=== PATIENT | female | born 1950 | race African-American/Black ===

== ENCOUNTER 2016-10-11 15:41 | Emergency (ER) | payer BC ==
[~2016-10-11] VITALS: Ht 160 cm; Wt 72.6 kg
[2016-10-11 15:50] VITALS: BP 152/85
[2016-10-11 16:10] LABS: BASO # 0.1 x10^3/uL (0.0-0.2); BASO % 1 % (0-3); EOS % 2 % (0-3); HEMATOCRIT 40.1 % (36.0-47.0); HEMOGLOBIN 13.1 g/dL (12.0-15.5); LYMPH # 2.2 x10^3/uL (1.0-4.8); LYMPH % 33 % (24-48); MEAN CORPUSCULAR HEMOGLOBIN 28 pg (25-35); MEAN CORPUSCULAR HGB CONC 33 g/dL (31-37); MEAN CORPUSCULAR VOLUME 85 fL (79-100); MONO % 8 % (0-9); NEUT % 56 % (31-73); PLATELET COUNT 197 x10^3/uL (140-400); RED BLOOD COUNT 4.73 x10^6/uL (3.50-5.40); RED CELL DISTRIBUTION WIDTH 15.7 % (11.5-14.5); WHITE BLOOD COUNT 6.8 x10^3/uL (4.0-11.0)
[2016-10-11 16:11] LABS: BILIRUBIN,URINE NEGATIVE (NEG); GLUCOSE,URINE NEGATIVE (NEG); NITRITE,URINE NEGATIVE (NEG); PH,URINE 5.5; PROTEIN,URINE NEGATIVE (NEG-TRACE)
[2016-10-11 16:22] LABS: BACTERIA,URINE FEW /HPF (0-FEW); RBC,URINE 0 /HPF (0-2); SQUAMOUS EPITHELIAL CELL,UR FEW /LPF
[2016-10-11 16:23] LABS: CALCIUM 9.5 mg/dL (8.5-10.1); CREATININE 1.3 mg/dL (0.6-1.0); GFR 41.2; POTASSIUM 3.9 mmol/L (3.5-5.1)
[2016-10-11 16:28] LABS: DIRECT BILIRUBIN 0.1 mg/dL (0.0-0.2); TOTAL BILIRUBIN 0.3 mg/dL (0.2-1.0); TOTAL PROTEIN 7.9 g/dL (6.4-8.2)
--- NOTE | 2016-10-11 16:30 | EKG ---
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
--- NOTE | 2016-10-11 16:36 | RAD ---
CT of the abdomen and pelvis without contrast, 10/11/2016: History: Upper and mid abdominal pain Noncontrast scans were obtained as requested. Coronary artery radiopacities are present compatible with calcifications and/or stents. The unopacified liver shows no abnormality. The gallbladder is unremarkable. No pancreatic abnormality is seen. The spleen is of normal size. There is a 4 cm cyst arising from the lower pole the right kidney. The kidneys show no evidence of obstruction. There is moderate aortoiliac calcific plaquing without evidence of aneurysm. The uterus is surgically absent. There are scattered colonic diverticula. No paracolonic inflammatory process is seen. The bowel loops are not dilated. A portion of the appendix is visualized and it shows no abnormality. No free fluid or free air is evident in the abdomen or pelvis. IMPRESSION: 1. Colonic diverticulosis. 2. Right renal cyst. 3. No acute abdominal or pelvic abnormality is detected. PQRS Compliance Statement: One or more of the following individualized dose reduction techniques were utilized for this examination: 1. Automated exposure control 2. Adjustment of the mA and/or kV according to patient size 3. Use of iterative reconstruction technique
--- NOTE | 2016-10-11 16:49 | PHYS DOC ---
Past Medical History Past Medical History: High Cholesterol, Hypertension, [place] Additional Past Medical Histor: GOITER ON THYROID Past Surgical History: Hysterectomy, Other Additional Past Surgical Histo: CARDIAC STENTS Alcohol Use: Occasionally Drug Use: None Adult General Chief Complaint Chief Complaint: ABDOMINAL PAIN HPI HPI 66-year-old female presenting to the emergency department today with abdominal pain in the epigastrium and left upper quadrant. It is sharp moderate nonradiating and without alleviating factors. She denies any shortness of breath chest pain fevers chills nausea or vomiting. Review of systems is negative for fevers chills chest pain shortness of breath. All other review of systems is negative unless otherwise noted in history of present illness. ED course: 66-year-old female presenting to the emergency department with epigastric abdominal pain. EKG obtained which shows sinus rhythm with a regular rate. [place] is leftward. Intervals are unremarkable and ST segments are congruent not suggestive of ACS reviewed by myself. Blood work obtained which was unremarkable. CT the abdomen pelvis negative for acute pathology. I offered the patient a medications however her pain had improved and so less declined pain or nausea medications. The patient was in discharged home to follow up with her PCP over the next 2-3 days. The patient was then discharged home in stable condition to follow up with their primary care physician over the next 2- 3 days. They were to return if their symptoms worsened or if they were concerned for any reason. [id number] discharge instructions and return precautions were given. Patient's questions were answered to their satisfaction. Patient is comfortable plan. Review of Systems Review of Systems SEE ABOVE. Allergies Allergies Allergies Coded Allergies Type Severity Reaction Last Updated Verified Iodinated Contrast- Oral and IV Dye Allergy Intermediate 10/11/16 No Physical Exam Physical Exam SEE ABOVE Constitutional: Well developed, well nourished, no acute distress, non-toxic appearance. [] HENT: Normocephalic, atraumatic, bilateral external ears normal, oropharynx moist, no oral exudates, nose normal. [] Eyes: PERRLA, EOMI, conjunctiva normal, no discharge. [] Neck: Normal range of motion, no tenderness, supple, no stridor. [] Cardiovascular:Heart rate regular rhythm, no murmur [] Lungs & Thorax: Bilateral breath sounds clear to auscultation [] Abdomen: Soft nontender abdomen without rebound tenderness or guarding present. Negative McBurneys point. Negative Cr sign. No ecchymosis present. Skin: Warm, dry, no erythema, no rash. [] Back: No tenderness, no CVA tenderness. [] Extremities: No tenderness, no cyanosis, no clubbing, ROM intact, no edema. [] Neurologic: Alert and oriented X 3, normal motor function, normal sensory function, no focal deficits noted. [] Psychologic: Affect normal, judgement normal, mood normal. [] Current Patient Data Vital Signs Vital Signs Date Time Temp Pulse Resp B/P (MAP) Pulse Ox O2 Delivery O2 Flow Rate FiO2 10/11/16 15:50 97.6 82 16 152/85 (107) 98 Room Air 97.6 Lab Values Laboratory Tests Test 10/11/16 15:45 10/11/16 16:00 Urine Collection Type Unknown Urine Color Yellow Urine Clarity Clear Urine pH 5.5 Urine Specific Flom >=1.030 Urine Protein Negative mg/dL (NEG-TRACE) Urine Glucose (UA) Negative mg/dL (NEG) Urine Ketones (Stick) Trace mg/dL (NEG) Urine Blood Negative (NEG) Urine Nitrite Negative (NEG) Urine Bilirubin Negative (NEG) Urine Urobilinogen Dipstick 1.0 mg/dL (0.2 mg/dL) Urine Leukocyte Esterase Trace (NEG) Urine RBC 0 /HPF (0-2) Urine WBC 1-4 /HPF (0-4) Urine Squamous Epithelial Cells Few /LPF Urine Bacteria Few /HPF (0-FEW) Urine Mucus Mod /LPF White Blood Count 6.8 x10^3/uL (4.0-11.0) Red Blood Count 4.73 x10^6/uL (3.50-5.40) Hemoglobin 13.1 g/dL (12.0-15.5) Hematocrit 40.1 % (36.0-47.0) Mean Corpuscular Volume 85 fL (79-100) Mean Corpuscular Hemoglobin 28 pg (25-35) Mean Corpuscular Hemoglobin Concent 33 g/dL (31-37) Red Cell Distribution Width 15.7 % (11.5-14.5) H Platelet Count 197 x10^3/uL (140-400) Neutrophils (%) (Auto) 56 % (31-73) Lymphocytes (%) (Auto) 33 % (24-48) Monocytes (%) (Auto) 8 % (0-9) Eosinophils (%) (Auto) 2 % (0-3) Basophils (%) (Auto) 1 % (0-3) Neutrophils # (Auto) 3.8 x10^3uL (1.8-7.7) Lymphocytes # (Auto) 2.2 x10^3/uL (1.0-4.8) Monocytes # (Auto) 0.5 x10^3/uL (0.0-1.1) Eosinophils # (Auto) 0.1 x10^3/uL (0.0-0.7) Basophils # (Auto) 0.1 x10^3/uL (0.0-0.2) Sodium Level 146 mmol/L (136-145) H Potassium Level 3.9 mmol/L (3.5-5.1) Chloride Level 108 mmol/L (98-107) H Carbon Dioxide Level 29 mmol/L (21-32) Anion Gap 9 (6-14) Blood Urea Nitrogen 20 mg/dL (7-20) Creatinine 1.3 mg/dL (0.6-1.0) H Estimated GFR (Cockcroft-Gault) 41.2 Glucose Level 104 mg/dL (70-99) H Lactic Acid Level 0.8 mmol/L (0.4-2.0) Calcium Level 9.5 mg/dL (8.5-10.1) Total Bilirubin 0.3 mg/dL (0.2-1.0) Direct Bilirubin 0.1 mg/dL (0.0-0.2) Aspartate Amino Transferase (AST) 17 U/L (15-37) Alanine Aminotransferase (ALT) 25 U/L (14-59) Alkaline Phosphatase 63 U/L (46-116) Troponin I Quantitative < 0.017 ng/mL (0.000-0.055) [id number]-Type Natriuretic Peptide 194 pg/mL (0-124) H Total Protein 7.9 g/dL (6.4-8.2) Albumin 4.0 g/dL (3.4-5.0) Lipase 129 U/L (73-393) Laboratory Tests 10/11/16 16:00 Laboratory Tests 10/11/16 16:00 EKG EKG [] Radiology/Procedures Radiology/Procedures [] Course & Med Decision Making Course & Med Decision Making Pertinent Labs and Imaging studies reviewed. (See chart for details) [] Dragon Disclaimer Dragon Disclaimer This electronic medical record was generated, in whole or in part, using a voice recognition dictation system. Departure Departure Impression: Primary Impression: Abdominal pain Disposition: HOME, SELF-CARE Condition: STABLE Referrals: NON,STAFF (PCP) KERRI LEZAMA Patient Instructions: Abdominal Pain Additional Instructions: Thank you for allowing us to participate in your care today. Followup with your primary care physician in 3 days if your symptoms do not improve. Call your Primary Doctor tomorrow and inform them of your visit today. If you do not have a primary care provider you can ask for a list of our primary care providers. Return to the emergency department you have any new or concerning findings. This should be evaluated by the primary care physician and any necessary consulting services for continued management within a few days after discharge. Return to emergency room if you have any new or concerning symptoms including but not limited to fever, chills, nausea, vomiting, intractable pain, any new rashes, chest pain, shortness of air, uncontrolled bleeding, difficulty breathing, and/or vision loss. You may have been prescribed medication that can change in your level of thinking and ability to operate machinery. These medications include hydrocodone and Ativan. Also, Benadryl has been known to do this as well. Be sure to check with your pharmacist and ask if the medications you've prescribed can affect your level of consciousness. I recommend not operating heavy machinery or driving while on medication such as these. Scripts Famotidine (PEPCID) 40 Mg Tablet 40 MG PO HS, #14 TAB 0 Refills Prov: ALICIA NGUYEN MD 10/11/16 ALICIA NGUYEN MD Oct 11, 2016 16:49
[2016-10-11] MEDS ORDERED: FAMO40TA57 PO (16:55)
[2016-10-11] MEDS ORDERED: FAMOTIDINE 20 MG TABLET. PO ONE (17:00)
[2016-10-18] MEDS ORDERED: ASPI-630 PO (07:53)
[2016-10-18] MEDS ORDERED: ISOS30TA4 PO (07:53)
[2016-10-18] MEDS ORDERED: CARV25TA2 PO (07:53)
[2016-10-18] MEDS ORDERED: AMLO5TAB2 PO (07:53)
[2016-10-18] MEDS ORDERED: COLC0.6T34 PO (07:53)
[2016-10-18] MEDS ORDERED: CLOP75TA PO (07:53)
[2016-10-18] MEDS ORDERED: MULT-208 PO (07:53)
[2016-10-18] MEDS ORDERED: CRESTOR40 MG PO (07:53)
[2016-10-18] MEDS ORDERED: ALLO100T PO (07:53)
== END 2016-10-11 17:06 | disposition home or self-care (01) ==
LOC: ER 15:41
DX: R10.13 Epigastric pain (principal); R10.12 Left upper quadrant pain; E78.00 Pure hypercholesterolemia, unspecified; I10 Essential (primary) hypertension; I25.2 Old myocardial infarction; Z90.710 Acquired absence of both cervix and uterus; Z95.5 Presence of coronary angioplasty implant and graft
CPT/HCPCS: 36415; 74176; 80048; 80076; 81001; 83605; 83690; 83880; 84484; 85027; 87086; 93005; 99285-25

== ENCOUNTER → 2016-10-18 | Day surgery (SDC) | payer BC ==
[~2016-10-18] MED LIST: ALLO100T PO; AMLO5TAB2 PO; ASPI-630 PO; CARV25TA2 PO; CLOP75TA PO; COLC0.6T34 PO; CRESTOR40 MG PO; FAMO40TA57 PO; HYDROmorphone 2 MG/ML VIAL IV PRN; ISOS30TA4 PO; IV RINGERS,LACTATED 1000ML 1,000 ML IV SCH; LIDOCAINE 1% 1 ML SYRINGE. ID PRN; MORPHINE SULFATE 2 MG/ML DISP.SYRIN. IV PRN; MULT-208 PO; ONDANSETRON PF 4 MG/2 ML VIAL. IV PRN; PROCHLORPERAZINE 10 MG/2 ML VIAL. IV PRN; PROPOFOL 20 ML IV ONE; fentaNYL PF VIAL 100 MCG/2 ML VIAL IV PRN
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
[2016-10-18 09:34] VITALS: BP 122/84
--- NOTE | 2016-10-19 12:38 | PATHOLOGY ---
PATHOLOGY REPORT * * * * * * * * FINAL DIAGNOSIS: Gastric biopsies, antrum: - Chronic gastritis, mild. COMMENT: Sections of the gastric antral biopsy show congestion and mild chronic inflammation. An immunoperoxidase stain for Helicobacter is obtained. No Helicobacter organisms are identified. There is no evidence of malignancy. (JPM:mgr; 10/19/2016) Special Stain Performed: Immunoperoxidase stain for Helicobacter (A1) REPORT ELECTRONICALLY SIGNED BY: Victor Manuel Li M.D. DATE/TIME: 10/19/2016 12:38 * * * * * * * * GROSS PATHOLOGY: Received in formalin labeled "Lita Elise, antral biopsy," are two segments of arita soft tissue measuring 0.2 and 0.4 cm in maximum dimension. The specimen is submitted entirely in cassette A1. (JPM; 10/18/16) INITIAL CPT CODE(S): A; 47724, 70598 Professional services performed by [facility] [place] [address] Technical services performed by [facility] at [address] [place] [address]. SPECIMEN(S) RECEIVED: A.Antral biopsy CLINICAL HISTORY: Epigastric pain; gastritis PATIENT: LITA ELISE /AGE: 11 1950 (Age: 66) PATIENT #: [id number] ALT CASE #: SPECIMEN COLLECTION DATE: 10/18/2016 SPECIMEN RECEIVED DATE: 10/18/2016 [facility] - [address] [place] [address] - PHONE: [phone] * * * END OF REPORT * * *
== END | disposition home or self-care (01) ==
LOC: ENDOS 07:30
PROVIDERS: ATTEND Internal Medicine Gastroenterology
DX: K21.0 Gastro-esophageal reflux disease with esophagitis (principal); K29.70 Gastritis, unspecified, without bleeding; K29.80 Duodenitis without bleeding; E78.00 Pure hypercholesterolemia, unspecified; I10 Essential (primary) hypertension; E66.9 Obesity, unspecified; K21.9 Gastro-esophageal reflux disease without esophagitis; Z86.73 Personal history of transient ischemic attack (TIA), and cerebral infarction without residual deficits; Z86.69 Personal history of other diseases of the nervous system and sense organs; Z68.44 Body mass index [BMI] 60.0-69.9, adult; Z90.710 Acquired absence of both cervix and uterus; Z91.041 Radiographic dye allergy status
CPT/HCPCS: 43239; J2704

== ENCOUNTER → 2018-03-12 | Outpatient (CLI) | payer BC ==
[2016-10-18 09:34] VITALS: BP 122/84
[~2018-03-12] MED LIST changes: -AMLO5TAB2 PO; +AMLO5TAB7 PO; -HYDROmorphone 2 MG/ML VIAL IV PRN; -IV RINGERS,LACTATED 1000ML 1,000 ML IV SCH; -LIDOCAINE 1% 1 ML SYRINGE. ID PRN; +LIDOCAINE 1% Multi-Dose 20 ML VIAL. INJ ONE; -MORPHINE SULFATE 2 MG/ML DISP.SYRIN. IV PRN; -ONDANSETRON PF 4 MG/2 ML VIAL. IV PRN; -PROCHLORPERAZINE 10 MG/2 ML VIAL. IV PRN; -PROPOFOL 20 ML IV ONE; -fentaNYL PF VIAL 100 MCG/2 ML VIAL IV PRN
--- NOTE | 2018-03-26 07:53 | RAD ---
PATHOLOGY REPORT FINAL DIAGNOSIS: IMPRESSION: The final pathology report indicates benign histology, which includes pattern consistent with adenomatoid nodule.
== END | disposition home or self-care (01) ==
LOC: US 10:30
PROVIDERS: ATTEND Specialist
DX: E04.1 Nontoxic single thyroid nodule (principal); I11.9 Hypertensive heart disease without heart failure; Z86.73 Personal history of transient ischemic attack (TIA), and cerebral infarction without residual deficits; Z91.041 Radiographic dye allergy status; Z90.710 Acquired absence of both cervix and uterus; Z79.01 Long term (current) use of anticoagulants
CPT/HCPCS: 10022; 60300; 76942; 88173; 88305